=== PATIENT | female | born 1955 | race Caucasian/White ===

== ENCOUNTER 2017-05-10 20:05 | Emergency (ER) | payer OTHER ==
[~2017-05-10] VITALS: Ht 157.5 cm; Wt 102.8 kg
[2017-05-10 20:13] VITALS: Ht 157.5 cm; Wt 102.8 kg
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
[2017-05-10] MEDS ORDERED: TRAMADOL HCL 50 MG TAB PO STA (21:47)
[2017-05-10] MEDS ORDERED: IBUPROFEN 200 MG TAB PO STA (21:47)
[2017-05-10] MEDS ORDERED: ACETAMINOPHEN 325 MG TAB PO STA (21:47)
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
[2017-05-10] MEDS ORDERED: TRAM-453 PO (22:41)
[2017-05-10 22:55] VITALS: BP 151/79; PULSE 67; O2SAT 98
== END 2017-05-10 23:09 | disposition home or self-care (01) ==
LOC: EDBD 20:05 → C.EDA 20:06
DX: S00.31XA Abrasion of nose, initial encounter (principal); S10.81XA Abrasion of other specified part of neck, initial encounter; S30.811A Abrasion of abdominal wall, initial encounter; S20.211A Contusion of right front wall of thorax, initial encounter; M25.521 Pain in right elbow; M54.2 Cervicalgia; V43.52XA Car driver injured in collision with other type car in traffic accident, initial encounter; Y92.411 Interstate highway as the place of occurrence of the external cause; J38.3 Other diseases of vocal cords; I10 Essential (primary) hypertension; E11.9 Type 2 diabetes mellitus without complications; Z98.1 Arthrodesis status